=== PATIENT | male | born 1955 | race Caucasian/White ===

== ENCOUNTER → 2020-02-03 14:36 | Outpatient (CLI) | payer OTHER, SELFPAY ==
--- NOTE | 2020-02-03 14:39 | DI.RAD.S_ITS ---
PROCEDURE: XR HIP W PEL IF DONE RT 2V INDICATIONS: Low back pain TECHNIQUE: AP pelvis with lateral view(s) of the right hip(s). COMPARISON: None. FINDINGS: Bones: No fractures or dislocations. Pelvic ring appears intact. No suspicious bony lesions. Mild bilateral hip degeneration. Lower lumbar spondylitic changes. Soft tissues: The visualized bowel gas pattern is normal. No suspicious soft tissue calcifications. IMPRESSION: Lower lumbar spondylosis and mild bilateral hip degeneration. Dictated by: Robinson Bailey M.D. on 02/03/2020 at 15:34 Approved by: Robinson Bailey M.D. on 02/03/2020 at 15:36
--- NOTE | 2020-02-03 14:39 | DI.RAD.S_ITS ---
PROCEDURE: XR LUMBAR SPINE 2-3V INDICATIONS: Low back pain TECHNIQUE: 3 views of the lumbar spine were acquired. COMPARISON: [facility], , -SPINE 2-3 VIEWS, 05/17/2011, 10:47. FINDINGS: Bones: No fracture or focal osseous destruction. Multilevel degenerative endplate sclerosis and spurring. Diffuse facet arthropathy. Diffuse mild narrowing of the lumbar disc spaces. Soft tissues: Overlying bowel gas pattern is normal. No suspicious soft tissue calcifications. IMPRESSION: Multilevel mild lumbar spondylosis and facet arthropathy, grossly unchanged. Dictated by: Robinson Bailey M.D. on 02/03/2020 at 15:36 Approved by: Robinson Bailey M.D. on 02/03/2020 at 15:37
== END ==
PROVIDERS: Family Provider Family Medicine; PCP Family Medicine; Referring Provider Family Medicine; Visit Provider Family Medicine
DX: M54.5 Low back pain (principal); M47.816 Spondylosis without myelopathy or radiculopathy, lumbar region; M16.0 Bilateral primary osteoarthritis of hip
CPT/HCPCS: 72100; 73502

== ENCOUNTER → 2022-06-01 11:18 | Outpatient (CLI) | payer OTHER, SELFPAY ==
--- NOTE | 2022-06-01 | DI.RAD.S_ITS ---
PROCEDURE: XR HIP W PEL IF DONE RT 2V INDICATIONS: low back pain TECHNIQUE: AP pelvis with lateral view(s) of the right hip(s). COMPARISON: [facility], , XR HIP W PEL IF DONE RT 2V, 02/03/2020, 14:36. FINDINGS: Bones: No fractures or dislocations. Asymmetric [id number] right hip joint osteoarthritic changes are seen with joint space narrowing and subchondral sclerosis. No evidence of avascular necrosis of femoral head. Pelvic ring appears intact. No suspicious bony lesions. Soft tissues: The visualized bowel gas pattern is normal. No suspicious soft tissue calcifications. IMPRESSION: Asymmetric [id number] right hip joint osteoarthritis. No right hip fracture or dislocation. No evidence of avascular necrosis. Dictated by: Seun Fox M.D. on 06/01/2022 at 15:02 Approved by: Seun Fox M.D. on 06/01/2022 at 15:02
--- NOTE | 2022-06-01 | DI.RAD.S_ITS ---
PROCEDURE: XR SHOULDER RT MIN 2V INDICATIONS: shoulder pain TECHNIQUE: Three views of the shoulder were acquired. COMPARISON: [facility], , SHOULDER MINIMUM 2VIEW RIGHT, 03/14/2016, 13:43. FINDINGS: Bones: No fractures or dislocations. No suspicious bony lesions. Visualized ribs appear intact. Soft tissues: No suspicious soft tissue calcifications. Small mixed interstitial and alveolar opacity in the right infrahilar region of the lung. IMPRESSION: 1. Normal right shoulder. 2. Questionable interstitial and alveolar opacity in the right infrahilar lung. Correlate with clinical symptoms and consider chest x-ray. Dictated by: Leonarda Hodgson M.D. on 06/01/2022 at 14:39 Approved by: Leonarda Hodgson M.D. on 06/01/2022 at 14:40
--- NOTE | 2022-06-01 | DI.RAD.S_ITS ---
PROCEDURE: XR LUMBAR SPINE 2-3V INDICATIONS: low back pain TECHNIQUE: 3 views of the lumbar spine were acquired. COMPARISON: [facility], CR, XR LUMBAR SPINE 2-3V, 02/03/2020, 14:36. FINDINGS: Bones: 5 dim-klb-[id number] vertebrae are present. There is normal bony alignment. Degenerative endplate changes and bilateral facet arthrosis throughout lumbar spine is seen progressed since 2019 study. No vertebral body compression fractures. No suspicious bony lesions. Soft tissues: Overlying bowel gas pattern is normal. No suspicious soft tissue calcifications. IMPRESSION: Worsening degenerative disc disease throughout lumbar spine. No acute compression fracture or significant spondylolisthesis. Dictated by: Seun Fox M.D. on 06/01/2022 at 15:01 Approved by: Seun Fox M.D. on 06/01/2022 at 15:01
== END ==
PROVIDERS: Family Provider Family Medicine; PCP Family Medicine; Referring Provider Family Medicine; Visit Provider Family Medicine
DX: M51.36 Other intervertebral disc degeneration, lumbar region (principal); M54.50 Low back pain, unspecified; M25.511 Pain in right shoulder
CPT/HCPCS: 72100; 73030; 73502

== ENCOUNTER → 2022-12-07 14:20 | Outpatient (CLI) | payer MEDICARE, MEDICAID, SELFPAY ==
--- NOTE | 2022-12-07 | DI.CT.S_ITS ---
PROCEDURE: CT CHEST WO CON INDICATIONS: essential (primary) hypertention TECHNIQUE: Noncontrast 5 mm thick sections acquired from the pulmonary apices to the posterior costophrenic angles. 1 mm lung window, 5 mm thick coronal and sagittal and 7 mm axial MIP reformats were then acquired. For radiation dose reduction, the following was used: automated exposure control, adjustment of mA and/or kV according to patient size. COMPARISON: None. FINDINGS: Image quality: Excellent. Lungs and pleura: No acute air space opacities. No pleural effusions or pneumothorax. Central and peripheral airways are patent and normal in caliber. Mediastinum: Heart size is normal. No pericardial effusion. No mediastinal adenopathy by size criteria. Thoracic aorta and central pulmonary arteries are normal in size. There are mild atherosclerotic calcification of aorta. Esophagus is normal in caliber. Small hiatal hernia. Bones and chest wall: No suspicious bony lesions. No vertebral body compression fractures. Prominent bridging osteophytes in thoracic spine suggesting diffuse idiopathic skeletal hyperostosis (DISH). No axillary or supraclavicular adenopathy by size criteria. Thyroid gland is unremarkable . Abdomen: Mild hepatic fatty infiltration. Visualized upper abdominal solid organs and bowel loops otherwise appear normal in the absence of contrast. IMPRESSION: 1. No acute cardiopulmonary abnormalities. 2. Suspect DISH. Dictated by: Paula Olivares M.D. on 12/08/2022 at 11:52 Approved by: Paula Olivares M.D. on 12/08/2022 at 11:57
== END ==
PROVIDERS: Family Provider Family Medicine; PCP Family Medicine; Referring Provider Family Medicine; Visit Provider Family Medicine
DX: M25.511 Pain in right shoulder (principal); I10 Essential (primary) hypertension; I70.0 Atherosclerosis of aorta; K44.9 Diaphragmatic hernia without obstruction or gangrene; K76.0 Fatty (change of) liver, not elsewhere classified
CPT/HCPCS: 71250

== ENCOUNTER 2024-05-28 12:58 | Day surgery (SDC) | payer MEDICARE, SELFPAY ==
[2024-05-27 07:44] VITALS: BMI 43.5
[2024-05-28] MEDS: ACETAMINOPHEN 325 MG TABLET 975 MG PO (13:38)
[2024-05-28] MEDS: LACTATED RINGERS 1,000 ML 42 ML IV (13:38)
[2024-05-28 13:41] VITALS: BMI 43.5
[2024-05-28 13:46] VITALS: BP 167/89; PULSE 80; RESP 20; TEMP 36.6; O2SAT 98
--- NOTE | 2024-05-28 15:48 | P.HP_ITS ---
History of Present Illness History of Present Illness Date Patient Seen: 05/28/24 Time Patient Seen: 15:48 Chief complaint: Open umbilical hernia repair Narrative: Kurt is a 68-year-old man with an umbilical hernia. Please see the office notes from March and April for details. [facility] Medical History (Updated 05/27/24 @ 07:48 by Capri Bauer RN) BMI 40.0-44.9, adult (05/27/24) Surgical History H/O wrist surgery H/O knee surgery H/O shoulder surgery Social History marital status: household members: spouse lives independently: Yes occupational status: employed Smoking Status: Never smoker alcohol intake: current substance use type: does not use Meds Home Medications and Allergies Home Medications Medication Instructions Recorded Confirmed Type fentanyl 100 mcg/hr transdermal 1 patch transdermal Q72H 04/15/24 05/28/24 History patch fentanyl 50 mcg/hr transdermal 1 patch transdermal Q72H 04/15/24 05/28/24 History patch gabapentin 300 mg capsule 300 mg PO TID 04/15/24 05/28/24 History hydrocodone 7.5 mg-acetaminophen 1 tab PO Q6H PRN Pain (Scale Score 04/15/24 05/28/24 History 325 mg tablet 4-6) pregabalin 75 mg capsule 75 mg PO BID 04/15/24 05/28/24 History Allergies Allergy/AdvReac Type Severity Reaction Status Date / Time No Known Drug Allergies Allergy Verified 05/28/24 13:26 Exam Vital Signs (past 8 hours): - 05/28/24 13:46 Temperature 97.9 F Pulse Rate 80 Respiratory Rate 20 Blood Pressure 167/89 H Pulse Oximetry 98 Oxygen Delivery Method Room Air Oxygen Delivery Method Room Air Const General: No acute distress Resp Effort & Inspection: normal respiratory effort Assessment & Plan Assessment and plan (1) Umbilical hernia: Qualifiers: Obstruction and gangrene presence: without obstruction or gangrene Qualified Code(s): K42.9 - Umbilical hernia without obstruction or gangrene Status: Acute (2) Morbid obesity: Status: None Plan We reviewed the risks and benefits and he would like to proceed with an umbilical hernia repair with mesh. Time-Based Coding :: [TOTAL MINUTES] spent with patient and on the chart (including review of chart, obtaining history, exam, reviewing outside data, placing orders, documenting exam and treatment plan, and counseling patient) on [DATE].
[2024-05-28] MEDS: CEFAZOLIN VIAL 3 GM in SODIUM CHLORIDE 0.9% 100 ML IV (16:19)
[2024-05-28] MEDS: BUPIVACAINE LIPOSOME 266 MG/20 ML VIAL INJ (16:30)
[2024-05-28] MEDS: BUPIVACAINE 0.5% W/ EPI (PF) 30 ML VIAL INJ (16:31)
--- NOTE | 2024-05-28 16:34 | SUR.OPER ---
Supine on padded OR bed, head on pillow, arms secured on padded arm boards at <90 degrees abduction, legs uncrossed, safety belt at thigh, tape over blanket over lower legs.
--- NOTE | 2024-05-28 17:16 | PM.OP.1 ---
Operative Date/Time/Diagnoses Date of procedure: 05/28/24 Time of procedure: 17:16 Pre-op diagnosis: Umbilical hernia Post-op diagnosis: same Procedure & Clinicians Procedure: Open umbilical hernia repair with mesh Same procedure as scheduled: Yes Surgeon: Pierce Clifford Anesthesia Type: General Operative Notes Procedure in detail: Ancef was administered. The patient was brought to the operating room, placed on the table in the supine position and general endotracheal anesthesia was induced. The abdomen was prepped and draped in the usual fashion. A time-out was performed. A 7 cm curvilinear incision was made inferior to the umbilicus. The hernia sac was dissected free from the surrounding subcutaneous adipose tissue. The sac was dissected off the umbilical stalk using a combination of cautery, sharp and blunt dissection. The hernia sac was entered and omentum was seen within the defect. The omentum was able to be reduced into the abdomen. The sac was then transected and sewn closed with a running 3-0 Vicryl. The fascial defect was about 3 cm in diameter. The fascial ring was cleaned up anteriorly. The fascia was then closed transversely with a proximally 8 interrupted 0 Ethibond sutures. The subcutaneous adipose tissue was cleared off of the anterior sheath circumferentially about 2 cm in each direction. A piece of polypropylene mesh was trimmed to fit over the fascial closure and secured with Tisseel. The skin was closed with multiple interrupted 3-0 Vicryl dermal sutures followed by a running 4 Monocryl subcuticular closure. EBL: 10 mL Steri-Strips were applied and an abdominal binder was applied. Post-operative Condition: stable Disposition: PACU
[2024-05-28 17:21] VITALS: BP 136/85; PULSE 84; RESP 16; TEMP 36.1; O2SAT 96
[2024-05-28 17:26] VITALS: BP 142/86; PULSE 83; RESP 10; O2SAT 96
[2024-05-28 17:31] VITALS: BP 138/83; PULSE 79; RESP 17; O2SAT 96
[2024-05-28 17:36] VITALS: BP 139/75; PULSE 81; RESP 13; O2SAT 96
[2024-05-28 17:44] VITALS: BP 131/67; PULSE 80; RESP 12; TEMP 36.5; O2SAT 97
== END 2024-05-28 18:04 | disposition home or self-care (01) ==
PROVIDERS: Family Provider Family Medicine; PCP Family Medicine; Referring Provider Surgery; Visit Provider Surgery
PROC: (CPT 49591; principal; 2024-05-28 14:30)
DX: K42.9 Umbilical hernia without obstruction or gangrene (principal); E66.01 Morbid (severe) obesity due to excess calories; Z68.41 Body mass index [BMI] 40.0-44.9, adult
CPT/HCPCS: 49591; C1781; C9290; J0330; J0690; J1100; J1885; J2405; J2704; J3010